=== PATIENT | female | born 2005 | race Caucasian/White ===

== ENCOUNTER 2024-05-23 14:44 | Inpatient (IN) | payer OTHER, SELFPAY ==
[2024-05-23] VITALS (15 sets, daily range): BP systolic 107–135; BP diastolic 67–100; BMI 25.3; BMI 25.2; BMI 24.7
--- NOTE | 2024-05-23 10:31 | ED.GENMED ---
History of Present Illness
General
Chief Complaint: Musculo-Skeletal Complaint
Source: patient
Exam Limitations: none
Time Seen by Provider: 05/23/24 10:13
History of Present Illness
History of Present Illness:
18-year-old female presents complaining of left-sided chest wall pain starting 4 to 5 days ago and getting worse. Radiates up to the left shoulder at this time. Hurts to breathe and move. She denies cough or hemoptysis. No fever. No known
injury. She is on control. control was recently started about 2 months ago. She denies any leg swelling or calf pain. She tried Tylenol and helps somewhat. No other complaints at this time
Phy Exam
Physical Exam
Physical Exam:
General: Well-appearing female no acute respiratory distress
HEENT: Normal cephalic atraumatic
Heart: Regular rate and rhythm
Lungs: Breath sounds heard bilaterally. Clear no wheeze
Musculoskeletal exam: Reproducible tenderness over the anterior lateral inferior portion of the left chest wall.
Abdomen: Soft not nondistended
Course
Orders/Labs/Results
Orders:
Orders
05/23/24 10:30
Ketorolac [Toradol] 15 mg IV NOW STA
Test Result ONCE
05/23/24 10:53
Complete Blood Count/With Diff Urgent
Comprehensive Metabolic Panel Urgent
D-Dimer Urgent
HCG, Serum Qualitative Screen Urgent
05/23/24 11:39
CT Chest PE Study Urgent
Comment:
Reason For Exam: chest pain
05/23/24 12:41
Electrocardiogram (*1) Urgent
Reason for Study: Chest Pain
EKG- Treatment ONCE
05/23/24 12:53
Troponin I Urgent
05/23/24 13:33
Heparin 5,900 units IV NOW STA
Pharmacy Request to Place See Dose Instructions PO NOW STA
Discontinue all Active Warfarin orders?: Yes
05/23/24 13:34
PTT Urgent
Comment: Obtain baseline before beginning heparin infusion if not already collected
Nursing to Place Non Medication Order As Directed
Physician Order: PTT 6 hours after initial start of Heparin infusion
05/23/24 13:37
Add On- LAB Urgent
Tests Added?: ptt
05/23/24 13:45
Heparin 90007 Units/250 ml 25,000 units in 250 ml IV PER PROTOCOL
Weight to be used for heparin protocol in kilograms (kg):: 74.3
Protocol:: DVT/PE
PTT Goal Range to be used:: PTT 73 to 111 seconds
Order type:: Initial
INITIAL Infusion Dose (UNITS/KG/hr) & then follow protocol:: 18 units/kg/hr
Infusion Dose in UNITS/hr & then follow protocol (UNITS/hr):: 1,300
INFUSION RATE in mL/hr & then follow protocol (mL/hr):: 13
For DVT/PE algorithm, re-bolus for low PTT?: Yes
PTT less than or equal to 64 seconds:: Re-bolus 80 units/kg (max 10,000units). Increase by 300 units/hr
(+ 3mL/hr)
PTT 64.1 to 72.9 seconds:: Re-bolus 40 units/kg (max 5,000 units). Increase by 200 units/hr
(+ 2mL/hr)
PTT 73 to 111 seconds:: Target Range. No change in rate.
PTT 111.1 to 130.9 seconds:: Decrease rate by 200 units/hr (- 2 mL/hr)
PTT 131 to 199.9 seconds:: HOLD for 1 hr. Then decrease by 200 units/hr (- 2mL/hr)
PTT greater than or equal to 200 seconds:: HOLD for 2 hrs & Notify Provider. Then decrease by 300 units/hr
(- 3mL/hr)
Lab follow-up:: Each change, PTT q6h until 2 consecutive are therapeutic. Then
PTT daily.
05/23/24 14:[address] See Dose Instructions IV DIRECTED
Abnormal Lab Results
05/23/24
10:53
WBC 11.9 H 10^3/uL
(4.8-10.8)
RBC 3.79 L 10^6/uL
(4.20-5.40)
Hgb 11.4 L g/dL
(12.0-16.0)
Hct 34.3 L %
(37.0-47.0)
Absolute Neuts (auto) 8.5 H 10^3/uL
(1.4-6.5)
Absolute Monos (auto) 1.3 H 10^3/uL
(0.1-0.6)
Lymphocytes % 14.2 L %
(20.5-51.1)
Monocytes % 10.7 H %
(1.7-9.3)
D-Dimer 7.01 H ug/mlFEU
(0.00-0.50)
Glucose 100 H mg/dl
(70-99)
05/23/24 10:53
05/23/24 10:53
Vital Signs
Initial and Last Documented VS:
Initial Vital Signs
Temp Pulse Resp BP Pulse Ox
99.1 F 125 18 135/86 99
05/23/24 09:44 05/23/24 09:44 05/23/24 09:44 05/23/24 09:44 05/23/24 09:44
Last Documented Vital Signs
Temp Pulse Resp BP Pulse Ox
99.1 F 117 14 124/80 100
05/23/24 09:44 05/23/24 13:20 05/23/24 13:20 05/23/24 13:20 05/23/24 13:20
MDM/Problems Addressed
Differential Diagnosis Includes:
Left chest wall pain. Consider strain versus rib fracture versus pneumothorax versus PE
Patient recently started oral contraceptives. D-dimer ordered. Check labs. Imaging pending
*Critical Care Note
Total Time (30-74mins, 75-104mins- exclusive of procedures): Not Applicable
Update Note
Update Note:
Given patient's pleuritic component of pain D-dimer was ordered which was 7. This was followed by CT scan of the chest demonstrates extensive clot burden in the left lung with associated pulmonary infarct. Patient is tachycardic here but otherwise
vital signs are stable. No signs of right heart strain on CT. Started heparin will admit to hospital.
ED Attending Note
-
Portions of this chart may have been created with voice recognition software.� Occasional wrong word or��sound alike� substitutions may have occurred due to the inherent limitations of voice recognition software.
Discharge Plan
Departure
Patient Disposition: Admit
Date of Disposition: 05/23/24
Time of Disposition: 13:38
Presentation/result/management discussed w/ accepting MD/DO: Hospitalist
Discharge Problem:
Pulmonary embolism
Referrals:
Yue Parham CRNP [Family Provider] -
Interventions
Interventions:
*Risk Screen - Suicide Last Done: 05/23/24 09:47
*General Assessment Last Done: 05/23/24 09:47
*Neglect/Abuse Screening Last Done: 05/23/24 09:47
*ED COVID-19 Vaccine History Last Done: 05/23/24 11:45
ED-Musculoskeletal Assessment Last Done: 05/23/24 11:04
Discharge Date and Time
Print Language: CYMRO
[2024-05-23] MEDS: TORADOL 15 MG IV (10:56)
[2024-05-23 11:05] LABS: % Basophils 0.7 % (0-2); % Eosinophils 2.3 % (0-6); % Immature Granulocytes 0.3 % (0-0.5); % Lymphocytes 14.2 % (20.5-51.1); % Monocytes 10.7 % (1.7-9.3); % Neutrophils 71.8 % (42.2-75.2); Absolute Basophils 0.1 10^3/uL (0-0.2); Absolute Eosinophils 0.3 10^3/uL (0-0.7); Absolute Lymphocytes 1.7 10^3/uL (1.2-3.4); Absolute Monocytes 1.3 10^3/uL (0.1-0.6); Absolute Neutrophils 8.5 10^3/uL (1.4-6.5); Hematocrit 34.3 % (37.0-47.0); Hemoglobin 11.4 g/dL (12.0-16.0); Mean Corp Hgb Conc. 33.2 g/dL (33.0-37.0); Mean Corpuscular Hgb 30.1 pg (27.0-31.0); Mean Corpuscular Volume 90.5 fL (81.0-99.0); Mean Platelet Volume 9.3 fL (7.4-10.4); Nucleated Red Blood Cells % 0 %; Platelet Count 293 10^3/uL (130-400); Red Blood Cell Count 3.79 10^6/uL (4.20-5.40); Red Cell Dist. Width 11.9 % (11.5-14.5); White Blood Cell Count 11.9 10^3/uL (4.8-10.8)
[2024-05-23 11:22] LABS: ALT (SGPT) 21 U/L (0-35); AST (SGOT) 19 U/L (14-36); Albumin 3.9 g/dl (3.5-5.0); Alkaline Phosphatase 50 U/L (38-126); Blood Urea Nitrogen 8 mg/dl (7-17); Calcium 9.3 mg/dl (8.4-10.2); Carbon Dioxide 27 mmol/L (22-30); Chloride 105 mmol/L (98-107); Glucose 100 mg/dl (70-99); Potassium 4.1 mmol/L (3.5-5.1); Sodium 141 mmol/L (135-145); Total Bilirubin 0.5 mg/dl (0.2-1.3); Total Protein 7.1 g/dl (6.3-8.2); eGFR > 60.00
[2024-05-23 11:23] LABS: HCG, Serum Qualitative Screen Negative
[2024-05-23 11:33] LABS: D-Dimer 7.01 ug/mlFEU (0.00-0.50)
[2024-05-23 13:32] LABS: Troponin I < 0.012 ng/ml
[2024-05-23] MEDS: HEPARIN 25000 UNITS/250 ML IV (13:43)
[2024-05-23] MEDS: HEPARIN 5900 UNITS IV ×2 (13:43→21:39)
--- NOTE | 2024-05-23 13:44 | HPS.HSE ---
Family Physician
-
Family Physician: KYRA King
Chief Complaint
-
left sided pleuritic chest pain
History of Present Illness
Ms. Gaviota Ramon is a 18 yo woman without significant past medical history presents to the ER with left-sided chest pain.
Pain started 4 days ago. It started left lower rib cage and then extended to left shoulder. Pain exacerbated by deep breaths. She denies shortness of breath. No fevers/chills. No nausea/vomiting. She was constipated and that is now resolved.
No rash or LE swelling.
She was started on OCP's 3 months ago for treatment of acne. While on the phone with grandmother today, patient was told her grandmother was diagnosed with Factor V Leiden mutation and takes aspirin 81mg daily.
Medical History
Past Medical History
Past Medical History: Reports None
Past Surgical History: Reports None
Social History
Tobacco: Non-smoker
Alcohol: None
Family History
Family History: Not pertinent
Allergies / Home Medications
Allergies reflects when Allergies were last updated in [employer].
Home Medications with original date entered in [employer]
Allergy/Medication List:
Allergies
Allergy/AdvReac Type Severity Reaction Status Date / Time
No Known Allergies Allergy Verified 05/23/24 09:46
Home Medications
ascorbic acid 100 mg-zinc sulfate 200 mg tablet 1 tab PO DAILY 05/23/24
clindamycin phosphate 1 % topical gel, once daily 1 applic topical DAILY 05/23/24
drospirenone 3 mg-ethinyl estradiol 0.02 mg tablet (Vestura (28)) 1 tab PO DAILY 05/23/24
ergocalciferol (vitamin D2) 1,000 unit capsule 2,000 unit PO ONCE 05/23/24
tretinoin 0.025 % topical cream 1 applic topical HS 05/23/24
Review of Systems
-
History Source: Patient
A 12 point ROS was completed and negative except as noted: Yes
Physical Exam
Vital Signs
Vital Signs
Temp Pulse Resp BP Pulse Ox
99.1 F 117 14 124/80 100
05/23/24 09:44 05/23/24 13:20 05/23/24 13:20 05/23/24 13:20 05/23/24 13:20
Physical Exam
General: No Apparent Distress and Conversant
HEENT: PERRLA
Respiratory: Clear; No Wheezes
Cardiac: S1/S2 and Regular Rhythm
GI: Soft and Non Tender
Musculoskeletal: No Edema
Skin: Warm and Dry; No Rash
Psych: Calm
Laboratory Results
-
05/23/24 10:53
05/23/24 10:53
Laboratory Results
APTT Cancelled 05/23/24 13:34
Total Bilirubin 0.5 mg/dl (0.2-1.3) 05/23/24 10:53
AST 19 U/L (14-36) 05/23/24 10:53
ALT 21 U/L (0-35) 05/23/24 10:53
Alkaline Phosphatase 50 U/L (38-126) 05/23/24 10:53
Troponin I < 0.012 ng/ml 05/23/24 12:53
Data Reviewed
-
Diagnostic Radiology: Report Reviewed by me
Lab Data: Labs Reviewed by me
Impression/Plan
-
Ms. Gaviota Ramon is a 18 yo woman without significant past medical history presents to the ER with left-sided chest pain found to have left-sided PE.
Triage VS: T 99.1, P 125, RR 18, BP 135/86, SpO2 99%
LABS: WBC 11.9, Hg 11.4, PLT 293, Na 141, K+ 4.1, Cr 0.6, Glucose 100, Ca 9.3, liver enzymes WNL, Trop < 0.012
HCG negative
EKG sinus tachycardia @ 104
CT PE:
IMPRESSION:
1. Extensive pulmonary emboli throughout left lower lobar, segmental and subsegmental pulmonary arteries. No overt CT evidence for right heart strain.
2. Trace left pleural effusion and adjacent left lower lobe probable pulmonary infarct.
MAR: IV Heparin gtt
Pulmonary Emboli
Family Hx Factor V Leiden Mutation
-admit to telemetry
-continue IV Heparin gtt
-stop OCP's - patient was on this for acne
-LE US
-TTE
-F/U Antiphospholipid Ab Panel and Lupus anticoagulant testing; remaining of hypercoag work-up as outpatient per Heme
-formal Hematology consult
Heavy Menses
-patient started menses today and it is usually heavy
-monitor while on heparin gtt with daily H/H and consider discussing case with Gynecology
Acne
-stop OCP's
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
-can consider starting spironolactone outpatient
DVT PPx Heparin gtt
FULL CODE
76 minutes spent on patient care
[2024-05-23 13:54] LABS: APTT 23.9 Sec (23.4-35.0)
--- NOTE | 2024-05-23 15:56 | CM ---
Addendum entered by Dipika Melara 05/23/24 16:11:
per insurance plan cost would be 219.36 for 30 days. CM will provide Coupon to family.
Original Note:
Patient seen at bedside in ED with patient mother and aunt. Patient is an art history student in [employer] and lives with her family in a 2 story home Patient has no DME and no past need for VN or SNF. Patient independent of ADL's and IADL's. Patient
PCP at [facility] was Dr. Chi. Patient was to see Yue Dempsey at [facility] on June 03. Patient admitted to . Dr. Montelongo requested cost of eliquis, Patient coverage is [facility] [id number]/Group [id number]. ID is [id number]. CM
will continue to follow for discharge planning needs.CM will continue to follow for discharge planning needs.
Plan;home with family; pending medical treatment plan
[2024-05-23] MEDS: TYLENOL 650 MG PO (17:05)
--- NOTE | 2024-05-23 18:31 | PTCARENOTE ---
pt admitted to room 2116 at 1745. pt received with heparin infusion at 1300 units/hr=13ml/hr. pt assisted to ambulate to bathroom-voided large amount of urine. pt currently menstruating. telemetry placed and reading ST 120's. pt and family
oriented to room, call garces and plan of care with verbalized understanding. care ongoing.
[2024-05-23] MEDS: TYLENOL 325 MG PO (19:00)
[2024-05-23 21:01] LABS: APTT 62.9 Sec (23.4-35.0)
[2024-05-23] MEDS: NSS 500 IV (21:31)
[2024-05-23] MEDS: LIDOCAINE 4% PATCH 1 PATCH TOPICAL (23:16)
[2024-05-23] MEDS: OFIRMEV 100 IV (23:17)
[2024-05-24] MEDS: MOTRIN 400 MG PO (03:11)
[2024-05-24 03:55] VITALS: BP 110/71
--- NOTE | 2024-05-24 04:34 | PTCARENOTE ---
1900 pt had Tylenol from previous RN. position in chair w/ multiple pillows and warm blankets to help w/ Left chest and shoulder pain w/ some +effective. pt continues on heparin gtt - adjusted per protocol.
2300 pt crying, moaning, and yelling d/t left sided chest pain r/t PE. pt states pain 11/26. s/w MIXED SIGNAL DESIGN ENGINEER Abdelwahab - given 1x dose of Ofirmev and Lidocaine patch. see MAR re: administration. reevaluated w/+eff.
0300 pt c/o left sided chest pain 11/26; pt not due for Tylenol s/w MIXED SIGNAL DESIGN ENGINEER Abdelwahab- 1 x dose of Ibuprofen w/ some relief. pt reposition and warm blanket applied.
[2024-05-24 04:48] LABS: APTT 175.4 Sec (23.4-35.0)
[2024-05-24 04:51] LABS: Blood Urea Nitrogen 7 mg/dl (7-17); Calcium 9.5 mg/dl (8.4-10.2); Carbon Dioxide 22 mmol/L (22-30); Chloride 106 mmol/L (98-107); Estimated Creatinine Clearance > 125 ml/min; Glucose 114 mg/dl (70-99); Magnesium 1.9 mg/dl (1.6-2.3); Potassium 4.2 mmol/L (3.5-5.1); Sodium 139 mmol/L (135-145); eGFR > 60.00
[2024-05-24] MEDS: HEPARIN 25000 UNITS/250 ML IV ×2 (06:33→23:51)
[2024-05-24] MEDS: TYLENOL 1000 MG PO ×4 (06:34→23:51)
[2024-05-24 09:44] LABS: Mean Corp Hgb Conc. 33.3 g/dL (33.0-37.0); Mean Corpuscular Hgb 30.3 pg (27.0-31.0); Mean Corpuscular Volume 90.9 fL (81.0-99.0); Mean Platelet Volume 9.3 fL (7.4-10.4); Platelet Count 326 10^3/uL (130-400); Red Blood Cell Count 3.63 10^6/uL (4.20-5.40); White Blood Cell Count 11.8 10^3/uL (4.8-10.8)
--- NOTE | 2024-05-24 10:53 | CM ---
Addendum entered by Joy Chahal RN 05/24/24 15:10:
Call placed to patient's pharmacy for cost of Eliquis 10mg bid x 7d; and Eliquis 5mg bid. Had to leave message for call back.
Original Note:
Reviewed the chart notes and spoke with the patient and her mother at the bedside. Heparin gtt continues. CM continues to be available to patient/family and is monitoring medical plan for needs at discharge.
Plan: Discharge to home when medically stable.
[2024-05-24 11:21] VITALS: BP 115/76
[2024-05-24 12:09] LABS: APTT 74.1 Sec (23.4-35.0)
--- NOTE | 2024-05-24 13:20 | CON.ONC ---
Documented by User: Radha Coto MD, Resident 05/24/24 15:51
Impression
Impression
18yo F with PMH PCOS who presented to ED for L chest pain and found to have PE; Periph US negative for DVTs.
Chest CT 05/23/24
IMPRESSION:
1. Extensive pulmonary emboli throughout left lower lobar, segmental and subsegmental pulmonary arteries. No overt CT evidence for right heart strain.
2. Trace left pleural effusion and adjacent left lower lobe probable pulmonary infarct.
Echo 05/24/24
CONCLUSIONS
Normal left ventricular size, wall thickness and systolic function. No regional
wall motion abnormalities are seen. LV ejection fraction is 55-60% by Pisano's
method of discs. Normal diastolic function.
Tricuspid valve opens normally. Trace tricuspid regurgitation. Right heart
pressures could not be determined.
Normal right ventricular size and function.
Assessment/plan:
Provoked pulmonary embolism secondary to combined oral contraceptives
-Discontinue OCPs permanently. Recommend alternative form of contraception; patient reports abstinence.
-Hemodynamically stable, room air, no evidence of right heart strain.
-Hypercoagulability panel pending.
-Continue heparin gtt--> transition to eliquis, which she will continue taking at home until heme/onc follow up.
-Follow up in heme/onc office in 3 months, and will reassess duration of anticoagulant at that time. Consider testing factor v leiden outpatient, as this will not change current management.
Patient History
History of Present Illness
18yo F with PMH PCOS who presented to ED for L chest pain. She initially thought the chest pain was muscular due to straining to pass BM, then attributed worsening pain to flipping her mattress. In the ED, her D-Dimer was elevated and CT showed
pulmonary embolism; periph US negative for DVTs; she was admitted and started on heparin gtt. She has no prior history of clots, and no one in her immediate family with history of clots. Her great-grandfather had a history of clots, and her
grandmother was found to be a carrier for Factor V Leiden. She was recently started on OCPs 2-3 months ago for treatment of acne and regulation of menstrual cycles, by her PCP (transferring care to [facility] on Jun 03). She denies recent travel
travel, more sedentary lifestyle than usual, falls/injuries.
Past-Medical/Surgical History
PCOS
Acne
Patient Medication
�Medication �Instructions �Recorded �Confirmed �Last Taken �Type
ascorbic acid 100 mg-zinc sulfate 1 tab PO DAILY Supplement 05/23/24 05/23/24 Unknown History
200 mg tablet
clindamycin phosphate 1 % topical 1 applic topical DAILY Skin Issues 05/23/24 05/23/24 Unknown History
gel, once daily
drospirenone 3 mg-ethinyl 1 tab PO DAILY HORMONE 05/23/24 05/23/24 Unknown History
estradiol 0.02 mg tablet (Vestura
(28))
ergocalciferol (vitamin D2) 1,000 2,000 unit PO ONCE Supplement 05/23/24 05/23/24 Unknown History
unit capsule
tretinoin 0.025 % topical cream 1 applic topical HS Skin Issues 05/23/24 05/23/24 Unknown History
Active Medications
Generic Name Dose Route Start Last Admin
Trade Name Freq PRN Reason Stop Dose Admin
Acetaminophen 1,000 mg 05/24/24 00:00 05/24/24 13:08
Acetaminophen 500 Mg Tablet PO 06/21/24 00:00 1,000 mg
Q6HPRN PRN Administration
mild/moderate pain, T > 100.5
Heparin Sodium 5,900 units 05/23/24 13:43 05/23/24 21:39
Heparin 80 Units/Kg Iv Rebolus IV 06/20/24 13:42 5,900 units
PRN PRN Administration
PTT < OR = 64 seconds
Heparin Sodium 3,000 units 05/23/24 13:44
Heparin 40 Units/Kg Iv Rebolus IV 06/20/24 13:43
PRN PRN
PTT = 64.1 to 72.9 seconds
Heparin Sodium 25,000 units in 250 mls @ 0 mls/hr 05/23/24 13:45 05/24/24 06:33
Heparin 84602 Units/250 Ml IV 250 mls
PER PROTOCOL JORJE Administration
Protocol
Per Protocol
Lidocaine 1 patch 05/23/24 22:00 05/23/24 23:16
Lidocaine 4% Topical Patch TOPICAL 06/20/24 21:59 1 patch
HS JORJE Administration
Protocol
Non-Formulary Medication 1 applic 05/24/24 08:00 05/24/24 11:51
Clindamycin Phosphate TOPICAL 06/21/24 07:59 Not Given
DAILY JORJE
Non-Formulary Medication 1 applic 05/23/24 22:00 05/24/24 11:50
Tretinoin TOPICAL 06/20/24 21:59 Not Given
HS JORJE
Polyethylene Glycol 17 grams 05/23/24 17:34
Polyethylene Glycol Powder 17 Grams Packet PO 06/20/24 17:33
DAILYPRN PRN
constipation
Review of Systems
-
History Source: Patient
All Other Systems: Reviewed and Negative
Physical Exam
-
General: Well Developed, No Apparent Distress, Comfortable and Conversant; Negative Pain, Fever, Chills or Sweats
Pulmonary: Other (nonlabored breathing)
Musculoskeletal: No Edema
Neurology: Non Focal
Psych: Calm
Labs
Lab Results
WBC 11.8 10^3/uL (4.8-10.8) H 05/24/24 09:09
RBC 3.63 10^6/uL (4.20-5.40) L 05/24/24 09:09
Hgb 11.0 g/dL (12.0-16.0) L 05/24/24 09:09
Hct 33.0 % (37.0-47.0) L 05/24/24 09:09
MCV 90.9 fL (81.0-99.0) 05/24/24 09:09
MCH 30.3 pg (27.0-31.0) 05/24/24 09:09
MCHC 33.3 g/dL (33.0-37.0) 05/24/24 09:09
RDW 12.0 % (11.5-14.5) 05/24/24 09:09
Plt Count 326 10^3/uL (130-400) 05/24/24 09:09
MPV 9.3 fL (7.4-10.4) 05/24/24 09:09
Abs Immat Gran (auto) 0.0 10^3/uL (0-0.05) 05/23/24 10:53
Absolute Neuts (auto) 8.5 10^3/uL (1.4-6.5) H 05/23/24 10:53
Absolute Lymphs (auto) 1.7 10^3/uL (1.2-3.4) 05/23/24 10:53
Absolute Monos (auto) 1.3 10^3/uL (0.1-0.6) H 05/23/24 10:53
Absolute Eos (auto) 0.3 10^3/uL (0-0.7) 05/23/24 10:53
Absolute Basos (auto) 0.1 10^3/uL (0-0.2) 05/23/24 10:53
Immature Gran % 0.3 % (0-0.5) 05/23/24 10:53
Neutrophils % 71.8 % (42.2-75.2) 05/23/24 10:53
Lymphocytes % 14.2 % (20.5-51.1) L 05/23/24 10:53
Monocytes % 10.7 % (1.7-9.3) H 05/23/24 10:53
Eosinophils % 2.3 % (0-6) 05/23/24 10:53
Basophils % 0.7 % (0-2) 05/23/24 10:53
Creatinine 0.6 mg/dL (0.6-1.0) 05/24/24 04:14
Vital Signs
Vital Signs
Temp Pulse Resp BP Pulse Ox
99.2 F 129 16 115/76 100
05/24/24 11:21 05/24/24 11:21 05/24/24 11:21 05/24/24 11:21 05/24/24 11:43

Documented by User: Dragan Boyd MD 05/24/24 16:09
Plan
Plan
Agree with plans for transition to Eliquis, with the prescribed loading dose. I reinforced the fact that she should never again take oral contraceptives or other female hormones. Will await results of hypercoagulable workup. We would like to see
her in the office in 3 months to determine whether to stop anticoagulation then or continue to 6 months. We can obtain a factor V Leyden on her at that time as well.
--- NOTE | 2024-05-24 13:22 | W.PN.HOSP.TC ---
Today's Communication/Plan
-
Assessment / Plan
Assessment / Plan
General: No Apparent Distress, Comfortable and Conversant
HEENT: NormoCephalic, Moist mucous membranes, Atraumatic
Respiratory: Clear and Non Labored Respirations
Cardiac: S1/S2 and Regular Rhythm; No Rub or Gallop
GI: Soft, Non Tender, Non Distended and Normal Bowel Sounds
Musculoskeletal: No Edema, no deformity, left chest TTP
Skin: Warm and dry
: NO Rice
Neuro: Awake, Alert, AO x 3 and Nonfocal/grossly intact
Psych: Calm and Intact Judgment/Insight
Ms. Ramon is a 18-year-old female with a medical history of acne (recently started on OCPs), heavy menses, and family history of factor V Leiden mutation who presented with left chest pain. She was found to have extensive pulmonary emboli
throughout the left lower lobar, segmental and subsegmental pulmonary arteries, and also probable left lower lobe pulmonary infarct. She was started on anticoagulation with IV heparin drip and admitted for further evaluation and management.
Acute pulmonary embolism:
- Likely due to recent OCP use, reports family history of factor V Leiden in her maternal grandmother
- No evidence of right heart strain on echocardiogram
- Hypercoagulable workup ongoing, hematology evaluation pending
- Continue anticoagulation with IV heparin, will likely transition to oral anticoagulation with Eliquis tonight
- No evidence of DVT in bilateral lower extremities, however patient does report recent right calf pain approximately 1 week ago which she thought was a pulled muscle
Normocytic anemia:
- Suspect due to history of heavy menses
- Current menstrual cycle started same day as she arrived to the hospital with ongoing heavy bleeding which is normal for her
- Hemoglobin remains mildly low around 11, will monitor considering currently anticoagulating
CODE STATUS: Full code
Anticipated Discharge: 24 - 48 hours
Subjective/Interval History
-
Date of Service: May 24, 2024
Patient was seen and examined at bedside this morning. Mother also present. Still having left-sided chest discomfort although she reports it does seem to be improving. Remains on anticoagulation with IV heparin drip.
Objective Data
-
Labs:
Laboratory Results
05/24/24 05/24/24 05/24/24
04:14 09:09 11:50
WBC 11.8 H
Hgb 11.0 L
Hct 33.0 L
Plt Count 326
APTT 175.4 H* 74.1 H
Sodium 139
Potassium 4.2
Chloride 106
Carbon Dioxide 22
BUN 7
Creatinine 0.6
Glucose 114 H
Calcium 9.5
05/24/24 05/24/24
12:50 17:50
WBC
Hgb
Hct
Plt Count
APTT Cancelled Pending
Sodium
Potassium
Chloride
Carbon Dioxide
BUN
Creatinine
Glucose
Calcium
Vital Signs:
Vital Signs
Temp Pulse Resp BP Pulse Ox
99.2 F 129 16 115/76 100
05/24/24 11:21 05/24/24 11:21 05/24/24 11:21 05/24/24 11:21 05/24/24 11:43
I&O
05/23/24 05/24/24 05/25/24
06:59 06:59 06:59
Intake Total 1080 / 1080 480 / 480
Output Total 125 / 125
Balance 955 / 955 480 / 480
Review of Systems
-
History Source: Patient
All other systems: Reviewed and negative
Respiratory: Reports Pleurisy (Left-sided chest discomfort worse with deep inspiration and movement)
Physical Exam
-
General: No Apparent Distress
[2024-05-24 15:10] VITALS: BP 120/78
[2024-05-24 19:13] VITALS: BP 115/75
[2024-05-24 20:03] LABS: APTT 66.4 Sec (23.4-35.0)
[2024-05-24] MEDS: HEPARIN 3000 UNITS IV (20:21)
[2024-05-24] MEDS: LIDOCAINE 4% PATCH 1 PATCH TOPICAL (20:29)
[2024-05-24 23:54] VITALS: BP 110/74
[2024-05-25 03:00] LABS: APTT 124.3 Sec (23.4-35.0)
[2024-05-25 03:26] LABS: Hematocrit 31.9 % (37.0-47.0); Hemoglobin 10.7 g/dL (12.0-16.0); Mean Corp Hgb Conc. 33.5 g/dL (33.0-37.0); Mean Corpuscular Volume 89.4 fL (81.0-99.0); Mean Platelet Volume 9.2 fL (7.4-10.4); Platelet Count 358 10^3/uL (130-400); Red Blood Cell Count 3.57 10^6/uL (4.20-5.40); Red Cell Dist. Width 11.9 % (11.5-14.5); White Blood Cell Count 12.7 10^3/uL (4.8-10.8)
[2024-05-25 03:34] VITALS: BP 115/70
[2024-05-25 07:50] VITALS: BP 108/70
[2024-05-25] MEDS: TYLENOL 1000 MG PO (08:14)
[2024-05-25] MEDS: NON-FORMULARY ITEM 1 APPLIC TOPICAL (08:16)
--- NOTE | 2024-05-25 09:43 | CM ---
manager of compensation spoke with patient's mother and attempted to contact [facility], however cost of Eliquis is as previous supervisor case loading stated $219.36 per month, patient has been provided with a free 309 day coupon and $10 copay per month, patient's mother is
asking for a script for medications as they have had problems with escript in the past.
Plan; Home with family when stable.
[2024-05-25 10:03] LABS: APTT 89.4 Sec (23.4-35.0)
[2024-05-25] MEDS: ELIQUIS 10 MG PO (10:55)
--- NOTE | 2024-05-25 10:56 | W.PN.ONC ---
Today's Communication / Plan
-
Continue eliquis, follow up in heme/onc office in 3 months.
Impression
Impression
18yo F with PMH PCOS who presented to ED for L chest pain and found to have PE; Periph US negative for DVTs.
Chest CT 05/23/24
IMPRESSION:
1. Extensive pulmonary emboli throughout left lower lobar, segmental and subsegmental pulmonary arteries. No overt CT evidence for right heart strain.
2. Trace left pleural effusion and adjacent left lower lobe probable pulmonary infarct.
Echo 05/24/24
CONCLUSIONS
Normal left ventricular size, wall thickness and systolic function. No regional
wall motion abnormalities are seen. LV ejection fraction is 55-60% by Pisano's
method of discs. Normal diastolic function.
Tricuspid valve opens normally. Trace tricuspid regurgitation. Right heart
pressures could not be determined.
Normal right ventricular size and function.
Assessment/plan:
Provoked pulmonary embolism secondary to combined oral contraceptives
-Discontinue OCPs permanently. Recommend alternative form of contraception; patient reports abstinence.
-Hemodynamically stable, room air, no evidence of right heart strain.
-Hypercoagulability panel pending.
-Heparin gtt--> transition to eliquis with prescribed loading dose, started 05/25/24.
-Continue eliquis at discharge. Follow up in heme/onc office in 3 months, and will reassess duration of anticoagulant at that time. Consider testing factor v leiden outpatient, as this will not change current management.
Subjective/Objective
Subjective/Objective
Reports improvement in the chest pain and breathing. No complaints this morning; feels well overall. Reports heavy menses though this is typical for her and not any worse than usual.
Phys ex: Sitting comfortably in chair, well-appearing, no acute distress. Conversant, nonlabored breathing. Calm, appropriate affect. Awake/alert/oriented.
Vital Signs:
Vital Signs
Temp Pulse Resp BP Pulse Ox
99.1 F 115 16 108/70 96
05/25/24 07:50 05/25/24 07:50 05/25/24 07:50 05/25/24 07:50 05/25/24 07:50
Lab Results:
Laboratory Data
WBC 12.7 10^3/uL (4.8-10.8) H 05/25/24 02:36
Hgb 10.7 g/dL (12.0-16.0) L 05/25/24 02:36
Plt Count 358 10^3/uL (130-400) 05/25/24 02:36
APTT 89.4 Sec (23.4-35.0) H 05/25/24 09:28
eGFR > 60.00 05/24/24 04:14
--- NOTE | 2024-05-25 11:08 | W.DCSUMMARY ---
Discharge Summary
Discharge Data
Date of Admission: 05/23/24
Date of Discharge: 05/25/24
-
Pending Results: No
Hospital Course
Ms. Ramon is a 18-year-old female with a medical history of acne (recently started on OCPs), heavy menses, and family history of factor V Leiden mutation who presented with left chest pain. She was found to have extensive pulmonary emboli
throughout the left lower lobar, segmental and subsegmental pulmonary arteries, and also probable left lower lobe pulmonary infarct. She was started on anticoagulation with IV heparin drip and admitted for further evaluation and management.
Echocardiogram showed no evidence of right heart strain. There is no evidence of DVTs in her bilateral lower extremities on ultrasound imaging. This pulmonary embolism is believed to be provoked in the setting of oral contraceptive pill use. She
has been advised to discontinue her oral contraceptive pills. A hypercoagulable workup has been started, and she will need to follow-up in the outpatient clinic with hematology for the results and ongoing management as needed. She has been
transitioned to anticoagulation with Eliquis, starting with 10 mg p.o. twice daily for 7 days and then 5 mg twice daily thereafter. She has been advised about the increased risk of bleeding and instructed to discontinue her Eliquis and contact her
primary care physician if she has unusual bleeding. Of course if she develops excessive bleeding she should seek treatment in the emergency department. She has remained hemodynamically stable throughout her admission and has not required
supplemental oxygen. She is being discharged to home with a prescription for Eliquis and instructions to follow-up with hematology in the outpatient setting. She should also follow-up with her primary care physician after hospital discharge.
General: No Apparent Distress, Comfortable and Conversant
HEENT: NormoCephalic, Moist mucous membranes, Atraumatic
Respiratory: Clear and Non Labored Respirations
Cardiac: S1/S2 and Regular Rhythm; No Rub or Gallop
GI: Soft, Non Tender, Non Distended and Normal Bowel Sounds
Musculoskeletal: No Edema, no deformity, mild left chest TTP
Skin: Warm and dry
: NO Rice
Neuro: Awake, Alert, AO x 3 and Nonfocal/grossly intact
Psych: Calm and Intact Judgment/Insight
Discharge Plan
-
Patient Disposition: Home (Routine Discharge)
Discharge Diagnosis/Procedures: pulmonary embolism
Diet: Regular
Activity: No restrictions
Activity Restrictions/Additional Instructions:
Ms. Ramon is a 18-year-old female with a medical history of acne (recently started on OCPs), heavy menses, and family history of factor V Leiden mutation who presented with left chest pain. She was found to have extensive pulmonary emboli
throughout the left lower lobar, segmental and subsegmental pulmonary arteries, and also probable left lower lobe pulmonary infarct. She was started on anticoagulation with IV heparin drip and admitted for further evaluation and management.
Echocardiogram showed no evidence of right heart strain. There is no evidence of DVTs in her bilateral lower extremities on ultrasound imaging. This pulmonary embolism is believed to be provoked in the setting of oral contraceptive pill use. She
has been advised to discontinue her oral contraceptive pills. A hypercoagulable workup has been started, and she will need to follow-up in the outpatient clinic with hematology for the results and ongoing management as needed. She has been
transitioned to anticoagulation with Eliquis, starting with 10 mg p.o. twice daily for 7 days and then 5 mg twice daily thereafter. She has been advised about the increased risk of bleeding and instructed to discontinue her Eliquis and contact her
primary care physician if she has unusual bleeding. Of course if she develops excessive bleeding she should seek treatment in the emergency department. She has remained hemodynamically stable throughout her admission and has not required
supplemental oxygen. She is being discharged to home with a prescription for Eliquis and instructions to follow-up with hematology in the outpatient setting. She should also follow-up with her primary care physician after hospital discharge.
Referrals:
Nicolás Ro, DO [Active] - (Call the Hematology/Oncology office to schedule an appointment in about 3 months.)
Yue Parham CRNP [Family Provider] -
Prescriptions:
New
Eliquis DVT-PE Treat 30D Start 5 mg (74 tabs) tablets,dose pack
See Rx Instructions .ROUTE .COMPLEX Qty: 74 0RF
Rx Instructions:
orally per package directions
Continued
ascorbic acid-zinc sulfate 100-200 mg Tablet
1 tab PO DAILY
ergocalciferol (vitamin D2) 1,000 unit Capsule
2,000 unit PO ONCE
tretinoin 0.025 % Cream
1 applic TOPICAL HS
clindamycin phosphate 1 % Gel, Once Daily
1 applic TOPICAL DAILY
Discontinued
drospirenone-ethinyl estradiol [Vestura (28)] 3-0.02 mg Tablet
1 tab PO DAILY
Discharge Orders:
Discharge Patient (As Directed); Ordered 05/25/24
Ordered By: Abad Hyde
Discharge Date and Time
Print Language: LAO
[2024-05-25 11:20] VITALS: BP 116/69
[2024-05-25 19:26] LABS: Cardiolipin IgA Antibody <10 APL (<=11); Cardiolipin IgM Antibody 11 MPL (<=12); Cardiolipin Igg Antibody <10 GPL (<=14)
[2024-05-25 20:36] LABS: Beta-2-Glycoprotein I Ab. IgG <10 SGU (<=20); Beta-2-Glycoprotein I Ab. IgM <10 SMU (<=20)
[2024-05-26 02:05] LABS: Beta-2-Glycoprotein I Ab. IgA <10 SAU (<=20)
== END 2024-05-25 13:11 | disposition home or self-care (01) | DRG 176 ==
LOC: 2 SOUTH 14:44
PROVIDERS: Physician Assistant; ADMITTING PHYSICIAN Student in an Organized Health Care Education/Training Program; ATTENDING PHYSICIAN Internal Medicine; EMERGENCY PHYSICIAN Emergency Medicine; FAMILY PHYSICIAN Nurse Practitioner Adult Health; OTHER PHYSICIAN Internal Medicine Hematology & Oncology
DX: I26.99 Other pulmonary embolism without acute cor pulmonale (principal); N92.0 Excessive and frequent menstruation with regular cycle; E28.2 Polycystic ovarian syndrome; Z83.2 Family history of diseases of the blood and blood-forming organs and certain disorders involving the immune mechanism
CPT/HCPCS: 71275; 80048; 80053; 83735; 84484; 84703; 85025; 85027; 85379; 85610; 85613; 85730; 86146; 86147; 86148; 93005; 93306; 93970; 96374; 96375; 99285; Q9967

== ENCOUNTER → 2024-09-13 07:15 | Outpatient (REF) | payer OTHER, SELFPAY | LOC: RAD 07:15 | PROVIDERS: ATTENDING PHYSICIAN Internal Medicine Hematology & Oncology; FAMILY PHYSICIAN Nurse Practitioner Adult Health | DX: I26.99 Other pulmonary embolism without acute cor pulmonale (principal); Z83.2 Family history of diseases of the blood and blood-forming organs and certain disorders involving the immune mechanism | CPT/HCPCS: 71275; Q9967 ==